=== PATIENT | male | born 1975 | race African-American/Black ===

== ENCOUNTER → 2019-11-03 | Outpatient (CLI) | payer OTHER ==
--- NOTE | 2019-11-03 14:38 | RAD ---
EXAM DESCRIPTION: Fingers,Right CLINICAL HISTORY: 44 years Male, PAIN IN RIGHT FINGER THUMB COMPARISON: None. FINDINGS: Three views of the right thumb show no acute fracture or malalignment. Dorsal subluxation of the interphalangeal joint of the thumb, questionable acuity. No additional fracture or malalignment. Postoperative changes in the fourth metacarpal only partially visualized. IMPRESSION: Dorsal subluxation of the interphalangeal joint of the thumb of uncertain acuity, favor nonacute. No additional right thumb abnormality. Electronically signed by: Jose Zazueta MD 11/03/2019 2:37 PM [facility]
--- NOTE | 2019-11-03 14:47 | RAD ---
EXAM DESCRIPTION: Hand,Right 3 Views CLINICAL HISTORY: 44 years Male, PAIN IN RIGHT HAND COMPARISON: None. FINDINGS: Three views of the right hand show no acute fracture or malalignment. Dorsal subluxation of the interphalangeal joint of the thumb, better seen on today's right thumb series but probably not acute. Probable old healed fracture involving the distal aspect of the proximal phalanx of the thumb. Postoperative changes in the fourth metacarpal without hardware complication. No suspicious radiopaque foreign body or soft tissue gas. IMPRESSION: Evidence of remote trauma involving the proximal phalanx of the right thumb with dorsal subluxation of the interphalangeal joint of the thumb also likely not acute. Postoperative changes in the fourth metacarpal, otherwise unremarkable exam. Electronically signed by: Jose Zazueta MD 11/03/2019 2:45 PM [facility]
== END ==
LOC: RAD 08:52
PROVIDERS: ATTEND Orthopaedic Surgery
DX: S63.121A Subluxation of interphalangeal joint of right thumb, initial encounter (principal); Z98.890 Other specified postprocedural states